=== PATIENT | male | born 1990 | race African-American/Black ===

== ENCOUNTER 2021-12-30 08:00 | Outpatient (CLI) | payer OTHER ==
--- NOTE | 2021-12-30 16:49 | XRAY Report ---
PROCEDURE: Lumbar Spine 2 View INDICATIONS: R FLANK PX TECHNIQUE: 2 views of the lumbar spine were acquired. COMPARISON: None. FINDINGS: Bones: 5 [id number] vertebrae are present. There is normal bony alignment. No vertebral body compression fractures. No suspicious bony lesions. L4-L5 pars interarticularis defect is present. Soft tissues: Overlying bowel gas pattern is normal. No suspicious soft tissue calcifications. IMPRESSION: 1. L4-L5 pars interarticularis defect. Initial further assessment with MRI is recommended. Reviewed by: Johanna López MD on 12/30/2021 4:48 PM PDT Approved by: Johanna López MD on 12/30/2021 4:48 PM PDT Station ID: [id number]
== END 2021-12-30 23:59 | disposition home or self-care (01) ==
LOC: DI.N 08:00
PROVIDERS: ATTEND Nurse Practitioner
DX: R10.9 Unspecified abdominal pain (principal); M47.816 Spondylosis without myelopathy or radiculopathy, lumbar region

== ENCOUNTER 2022-01-23 08:00 | Outpatient (CLI) | payer OTHER ==
[2022-01-23 11:32] LABS: BASOPHILS # (AUTO) 0.1 10^3/uL (0.0-0.1); BASOPHILS % (AUTO) 1.5 %; EOSINOPHILS # (AUTO) 0.1 10^3/uL (0.0-0.7); EOSINOPHILS % (AUTO) 2.6 %; HCT - HEMATOCRIT 41.8 % (42.0-52.0); HGB - HEMOGLOBIN 14.2 g/dL (14.0-18.0); LYMPHOCYTES # (AUTO) 1.8 10^3/uL (1.5-3.5); LYMPHOCYTES % (AUTO) 39.7 %; MEAN CORPUSCULAR HEMOGLOBIN 29.5 pg (27.0-31.0); MEAN CORPUSCULAR VOLUME 86.7 fL (80.0-94.0); MEAN PLATELET VOLUME 10.3 fL (7.4-11.4); MONOCYTES # (AUTO) 0.5 10^3/uL (0.0-1.0); MONOCYTES % (AUTO) 9.7 %; NEUTROPHILS # (AUTO) 2.2 10^3/uL (1.5-6.6); NEUTROPHILS % (AUTO) 46.3 %; PLT - PLATELET COUNT 263 10^3/uL (130-450); RED BLOOD COUNT 4.82 10^6/uL (4.70-6.10); WHITE BLOOD COUNT 4.6 x10^3/uL (4.8-10.8)
[2022-01-23 11:50] LABS: CALCIUM 9.2 mg/dL (8.5-10.3); CREATININE 0.9 mg/dL (0.6-1.2); POTASSIUM 4.2 mmol/L (3.5-5.0)
== END 2022-01-23 23:59 | disposition home or self-care (01) ==
LOC: LAB.N 08:00
PROVIDERS: ATTEND Physician Assistant
DX: R10.9 Unspecified abdominal pain (principal)
CPT/HCPCS: 36415; 80048; 85025

== ENCOUNTER 2023-05-27 12:57 | Outpatient (CLI) | payer OTHER ==
--- NOTE | 2023-05-27 17:13 | MRI Report ---
PROCEDURE: KNEE WO - RT INDICATIONS: RIGHT KNEE PAIN TECHNIQUE: Noncontrast sagittal PD fast spin echo and T2 fast spin echo with fat saturation, sagittal 3-D gradie nt sequence with fat saturation; coronal T1 spin echo and PD fast spin echo with fat saturation, and axial PD fast spin echo with fat saturation through the knee. COMPARISON: None. FINDINGS: Image quality: Excellent. Menisci: The medial and lateral menisci are intact The meniscal root ligaments appear intact. Cruciate ligaments: Low-grade partial-thickness tear involving distal anterior cruciate ligament at i ts tibial insertion is seen. The posterior cruciate ligament is intact. Medial structures: The medial collateral ligament appears markedly thickened with heterogeneous intr asubstance T2 hyperintense signal and adjacent soft tissue edema at its femoral insertion. The poste rior oblique ligament, semimembranosus tendon insertions, and oblique popliteal ligament, and menisco capsular junction appear intact. Visualized portions of the pes anserinus tendons appear normal. No abnormal bursal fluid. Lateral structures: The lateral collateral ligament, long and short heads of the biceps femoris tend on appear intact. The popliteus tendon appears normal; the popliteofibular ligament appears intact. Iliotibial band appears normal. Anterior structures: The quadriceps tendon is intact. Proximal patella tendinosis and low-grade parti al-thickness tear at its inferior patella insertion is noted. Patellar alignment is normal. No femor al trochlear dysplasia or ventral trochlear prominence. No edema in the infrapatellar fat pad. Bones and cartilage: No fracture or dislocation. 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 Joint space: There is physiologic knee joint fluid. No Singh's cyst. Normal appearing synovial pli are incidentally noted. IMPRESSION: 1. No evidence of focal meniscal tear. 2. Low-grade partial-thickness involving distal ACL at its proximal tibial insertion. No ACL rupture. The PCL is intact. 3. Moderate grade partial thickness involving medial collateral ligament. 4. 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 No fracture or dislocation. Reviewed by: Alber Mondragon MD on 05/27/2023 5:12 PM PDT Approved by: Alber Mondragon MD on 05/27/2023 5:12 PM PDT Station ID: [id number]
== END 2023-05-27 12:58 | disposition home or self-care (01) ==
LOC: DI 12:57
DX: S83.511A Sprain of anterior cruciate ligament of right knee, initial encounter (principal); M17.11 Unilateral primary osteoarthritis, right knee; M94.261 Chondromalacia, right knee